=== PATIENT | female | born 2000 | race Caucasian/White ===

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

== ENCOUNTER 2019-06-17 15:16 | Emergency (ER) | payer OTHER ==
[~2019-06-17] VITALS: Ht 157.5 cm; Wt 72.3 kg
[~2019-06-17 15:16] MED LIST: ACET500C5 PO; DOXY1TAB3 PO; FAMO-96 PO
[2019-06-17 15:44] VITALS: Ht 157.5 cm; Wt 72.3 kg
[2019-06-17] MEDS ORDERED: ONDANSETRON (ODT) 4 MG TAB ODT STA (17:15)
[2019-06-17] MEDS ORDERED: FAMOTIDINE 20 MG TAB PO ONE (17:30)
[2019-06-17] MEDS ORDERED: LIDOCAINE/MYLANTA 40 ML BTL PO ONE (17:30)
[2019-06-17 19:29] VITALS: BP 132/68; PULSE 75; RESP 20
--- NOTE | 2019-07-02 14:33 | ERD ---
ER Documentation Chief Complaint Chief Complaint AP since Sat, VB interm since Sat. + home preg test. LMP: 05/06/19 HPI This is a 18-year-old female patient who presents to the emergency room with complaint of abdominal pain x3 days. Patient states she has taken home test which was positive. LMP 05/06/2019, patient denies fevers, + nausea, patient patient states that bleeding occurs when she wipes after using toilet paper. G2, first ended in miscarriage at 5 weeks- 1 year ago. ROS All systems reviewed and are negative except as per history of present illness. Medications Home Meds Active Scripts Famotidine* (Pepcid*) 20 Mg Tablet, 40 MG PO BID for 30 Days, #30 TAB Prov:ALAN SQUIRES NP 06/17/19 Doxylamine/Pyridoxine Hcl (DICLEGIS DR 10-10 MG TABLET) 1 Each Tablet.dr, 1 TAB PO DAILY for 30 Days, #90 TAB Start with 2 tabs by mouth every evening. If symptoms persist after 2 days increase to 1 tab by mouth in the morning and 2 tabs by mouth in the evening. May further increase to 1 tab by mouth in the morning, 1 tab by mouth every afternoon, and 2 tabs by mouth every evening. Maximum of 4 tabs per day. Take on empty stomach. Prov:ALAN SQUIRES NP 06/17/19 Acetaminophen* (Tylophen*) 500 Mg Capsule, 1 CAP PO Q6H PRN for PAIN AND OR ELEVATED TEMP, #30 CAP Prov:MIRIAM AGUDELO PA-C 06/06/18 Allergies Allergies: Coded Allergies: No Known Allergy (Unverified , 06/17/19) PMhx/Soc Medical and Surgical Hx: pt denies Medical Hx History of Surgery: No Anesthesia Reaction: No Hx Neurological Disorder: No Hx Respiratory Disorders: No Hx Cardiac Disorders: No Hx Psychiatric Problems: No Hx Miscellaneous Medical Probl: No Hx Alcohol Use: No Hx Substance Use: No Hx Tobacco Use: No Smoking Status: Never smoker FmHx Family History: No diabetes, No coronary disease, No other Physical Exam Physical Exam Const: No acute distress Head: Atraumatic Eyes: Normal Conjunctiva, PERRL ENT: Normal External Ears, Nose and Mouth. Neck: Full range of motion. No meningismus. No lymphadenopathy Resp: Clear to auscultation bilaterally Cardio: Regular rate and rhythm, no murmurs Abd: Soft, non tender, non distended. Normal bowel sounds, +epgasric tenderness, no guarding, no rebound, no organomegaly Skin: No petechiae or rashes Back: No midline or flank tenderness, no CVT Ext: No cyanosis, or edema Neur: Awake and alert, clear speech, steady gait Psych: Normal Mood and Affect Results 24 hrs Laboratory Tests Test 06/17/19 17:41 06/17/19 18:50 White Blood Count 7.9 10^3/ul Red Blood Count 4.18 10^6/ul Hemoglobin 12.0 g/dl Hematocrit 36.3 % Mean Corpuscular Volume 86.8 fl Mean Corpuscular Hemoglobin 28.7 pg Mean Corpuscular Hemoglobin Concent 33.1 g/dl Red Cell Distribution Width 12.0 % Platelet Count 291 10^3/UL Mean Platelet Volume 10.0 fl Immature Granulocytes % 0.300 % Neutrophils % 75.1 % Lymphocytes % 17.6 % Monocytes % 6.4 % Eosinophils % 0.5 % Basophils % 0.1 % Nucleated Red Blood Cells % 0.0 /100WBC Immature Granulocytes # 0.020 10^3/ul Neutrophils # 5.9 10^3/ul Lymphocytes # 1.4 10^3/ul Monocytes # 0.5 10^3/ul Eosinophils # 0.0 10^3/ul Basophils # 0.0 10^3/ul Nucleated Red Blood Cells # 0.0 10^3/ul Lipase 61 U/L Beta HCG, Quantitative 44337.0 mIU/ml Bedside Urine pH (LAB) 6.5 Bedside Urine Protein (LAB) 1+ Bedside Urine Glucose (UA) Negative Bedside Urine Ketones (LAB) Negative Bedside Urine Blood Trace-lysed Bedside Urine Nitrite (LAB) Negative Bedside Urine Leukocyte Esterase (L Negative Current Medications Medications Dose Sig/Elodia Start Time Status Last (Trade) Ordered Route PRN Stop Time Admin Dose Reason Admin Ondansetron 4 mg ONCE STAT 06/17/19 DC 06/17/19 HCl (Zofran ODT 17:15 17:36 Odt) 06/17/19 17:21 40 ml ONCE ONCE 06/17/19 DC 06/17/19 Miscellaneous PO 17:30 17:36 Medication 06/17/19 17:31 (Gi Cocktail (2)) Famotidine 20 mg ONCE ONCE 06/17/19 DC 06/17/19 (Pepcid) PO 17:30 17:36 06/17/19 17:31 Procedures/MDM PROCEDURES/MDM DIAGNOSTIC IMAGING: Read by radiologist. Ultrasound OB IMPRESSION: Single live intrauterine with an estimated gestational age of 6 weeks and 2 days, based on ultrasound measurements. LAUREN based on ultrasound measurements is 02/08/20. Heart rate 1 1 9 bpm Left ovary not visualized. LAB INTERPRETATION: No leukocytosis cysts, no anemia, normal lipase, beta hCG 03406 Patient blood type is O positive Urine negative for UTI -Medications: Zofran, lidocaine, famotidine Patient tolerated medication well with no adverse reactions. Patient reported complete resolution in pain with treatment. MDM: Patient remained stable throughout the ER course. Patient presents with vaginal bleeding for the last day. Differential includes early normal , ectopic , failed . She will discharged home with recommendations for 2-day recheck of hormones to further evaluate condition. She is to return sooner for fevers, hemorrhaging, new worsening symptoms. Current signs or symptoms do not suggest appendicitis, acute surgical abdomen, additional concerning signs or symptoms or conditions. The patient was stable with no new complaints during the ER course. Clinically, there is no current evidence to suggest meningitis, sepsis, acute abdomen, pneumonia, stroke, acute coronary syndrome, pulmonary embolism, aortic dissection or any other emergent condition appearing to require further evaluation or hospitalization. Patient counseled regarding my diagnostic impression and care plan. Prior to discharge all questions answered. Pt agrees with treatment plan and understands strict return precautions. Pt is instructed to follow up with primary care provider within 24-48 hours. Precautionary instructions provided including instructions to return to the ER if not improving or for any worsening or changing symptoms or concerns. DISPOSITION and PLAN: RX: Famotidine, Diclegis The patient has been discharge home to follow-up with community physician. Departure Diagnosis: Primary Impression: Nausea/vomiting in Additional Impressions: First trimester Dyspepsia Condition: Stable Patient Instructions: Adapting to : First Trimester, Aluminum Hydroxide, Magnesium Carbonate Chewable tablet Additional Instructions: Thank you very much for allowing us to participate in your care. Your health and safety is our top priority at [facility]. Call your primary care doctor TOMORROW for an appointment during the next 2-4 days and bring all the information and medications prescribed. Have prescriptions filled and follow precisely the directions on the label. If the symptoms get worse and your provider is unavailable, return to the Emergency Department immediately. TAKE THE VITAMIN IF NOT ALREADY DOING SO USE LIKELY JUST DIRECTED NEEDED FOR NAUSEA STAY WELL-HYDRATED USE PEPCID FOR ACID INDIGESTION YOU MAY ALSO USE [id number] TUMS NEEDED FOR INDIGESTION FOLLOW-UP WITH YOUR COMPUTER INFORMATION SYSTEMS INSTRUCTOR IN THE NEXT 3 TO 5 DAYS FOR REEVALUATION AND BRING IT 2 DAYS EXAMINATION WITH YOU RETURN TO THE EMERGENCY ROOM IMMEDIATELY WITH ANY SEVERE ABDOMINAL PAIN, VOMITING AND UNABLE TO STAY HYDRATED, VAGINAL BLEEDING ALAN SQUIRES NP Jul 02, 2019 14:31
== END 2019-06-17 19:31 | disposition home or self-care (01) ==
LOC: FTE 15:16
DX: O21.9 Vomiting of pregnancy, unspecified (principal); R10.13 Epigastric pain; Z3A.01 Less than 8 weeks gestation of pregnancy
CPT/HCPCS: 76801; 81003; 83690; 84702; 85025; 86900; 86901; Z7610; 36415